=== PATIENT | female | born 1960 | race Caucasian/White ===

== ENCOUNTER 2016-04-28 11:22 | Emergency (ER) | payer OTHER ==
[~2016-04-28 11:22] MED LIST: AMIT10TA13; ASPI81 PO; ESTR.3 PO; LOVA10TA; RANI150UDC PO
[2016-04-28 11:35] VITALS: BP 178/118; PULSE 93; RESP 20; TEMP 98.2; O2SAT 94
[2016-04-28] MEDS ORDERED: DICL1CAP3 PO (11:40)
[2016-04-28] MEDS ORDERED: SODIUM CHLORIDE 0.9% FLUSH 10 ML FLUSH IVF PRN (11:45)
[2016-04-28] MEDS ORDERED: SODIUM CHLORID 0.9% 500 ML INJ 500 ML IV ONE (11:45)
[2016-04-28 11:51] VITALS: BP_SYST 135; BP_SYST 153; BP_DIAS 80; BP_DIAS 93; PULSE 69; RESP 20; O2SAT 95; O2SAT 98
[2016-04-28 11:54] LABS: AUTOMATED NEUTROPHIL # 6.2 TH/MM3 (1.8-7.7); BASOPHIL % 0.4 % (0.0-2.0); EOSINOPHIL # 0.1 TH/MM3 (0-0.4); EOSINOPHIL % 0.9 % (0.0-4.0); HEMATOCRIT 45.3 % (35.0-46.0); HEMO FLAGS DIFF FINAL; LYMPH % 28.6 % (9.0-44.0); LYMPHOCYTE # 2.8 TH/MM3 (1.0-4.8); MEAN CELL VOLUME 89.1 FL (80.0-100.0); MEAN CORPUSCULAR HEMOGLOBIN 30.1 PG (27.0-34.0); MEAN CORPUSCULAR HGB CONC 33.8 % (32.0-36.0); NEUT % 64.1 % (16.0-70.0); PLATELET COUNT 353 TH/MM3 (150-450); RED BLOOD COUNT 5.08 MIL/MM3 (4.00-5.30); RED CELL DISTRIBUTION WIDTH 13.4 % (11.6-17.2); WHITE BLOOD COUNT 9.7 TH/MM3 (4.0-11.0)
[2016-04-28 12:02] LABS: CHLORIDE 108 MEQ/L (98-107); POTASSIUM 3.8 MEQ/L (3.5-5.1); SODIUM (NA) 143 MEQ/L (136-145)
--- NOTE | 2016-04-28 12:04 | RADHPO ---
EXAM DATE/TIME: 04/28/2016 11:42 [facility] COMPARISON: No previous studies available for comparison. INDICATIONS : Chest pains with shortness of breath. MEDICAL HISTORY : None. SURGICAL HISTORY : Right side pneumothorax about 20 years ago. ENCOUNTER: Initial ACUITY: 1 day PAIN SCORE: 6/10 LOCATION: Bilateral chest and mid back region. FINDINGS: The heart is normal size. The lungs demonstrate some mild chronic interstitial changes in the bases b ut are otherwise clear. No pneumothorax is seen. The visualized bony structures are grossly intact. CONCLUSION: 1. Chronic appearing interstitial change at the lung bases. No acute abnormality. Teddy Mark MD on April 28, 2016 at 11:59 Board Certified Radiologist. This report was verified electronically.
[2016-04-28 12:06] LABS: ANION GAP 8 MEQ/L (5-15); BICARBONATE 26.6 MEQ/L (21.0-32.0); BLOOD UREA NITROGEN 14 MG/DL (7-18); MAGNESIUM 2.4 MG/DL (1.5-2.5)
[2016-04-28 12:09] LABS: ALT (GPT) 41 U/L (10-53); AST (GOT) 23 U/L (15-37); GLOMERULAR FILTRATION RATE 84 ML/MIN (>89)
[2016-04-28 12:10] LABS: TOTAL BILIRUBIN ADULT 0.5 MG/DL (0.2-1.0)
[2016-04-28 12:12] LABS: ALKALINE PHOSPHATASE 70 U/L (45-117)
[2016-04-28 12:13] LABS: APTT (PATIENT) 27.7 SEC (24.3-30.1); INTERNATIONAL NORMALIZED RATIO 0.9 RATIO; PROTHROMBIN TIME - PATIENT 10.1 SEC (9.8-11.6)
[2016-04-28 12:15] LABS: CREATINE KINASE 77 U/L (26-192)
--- NOTE | 2016-04-28 13:00 | PD ---
HPI Chief Complaint: Chest Pain Time Seen by Provider: 11:36 Travel History International Travel<30 days: No Contact w/Intl Traveler<30days: No Traveled to known affect area: No History of Present Illness HPI 56-year-old female notes pain in her upper back that goes around into her breasts on the right. She states the pain is stabbing. The pain is severe in nature. This is been intermittent since Tuesday night. She states it feels worse when she moves around or takes a deep breath. She denies other modifying factors. She states she also intermittently will get chest pain. She denies other concurrent complaints. She denies any trauma. She states she follows with Dr. Russell for intermittent elevated heart rate. She states she tried nitroglycerin at home that she has for that and it did not help. She states that she's had a cardiac catheterization a couple years ago that showed small vessels but she did not have any stents or interventions that she is aware of. She states she last saw them 6 months ago but does not recall her last stress test. PFSH Past Medical History Cardiovascular Problems: Yes (IRREGULAR HEART BEAT) High Cholesterol: Yes Diminished Hearing: No Medical other: Yes (COLLAPSED LUNG) ?: Not Past Surgical History Hysterectomy: Yes Family History Family Myocardial Infarction: Yes Social History Alcohol Use: No Tobacco Use: No (FORMER) Substance Use: No Allergies-Medications (Allergen,Severity, Reaction): Coded Allergies: Lidocaine (Verified Allergy, Severe, 04/28/16) Uncoded Allergies: N (Allergy, Unknown, 10/16/02) XYLOCAINE-SEVERE REACTION (Allergy, Unknown, 10/16/02) Reported Meds & Prescriptions Reported Meds & Active Scripts Active Reported Zorvolex (Diclofenac) 18 Mg Cap Unknown Dose PO TID Review of Systems Except as stated in HPI: all other systems reviewed are Neg Physical Exam Narrative GENERAL: Well-nourished, well-developed patient. Uncomfortable SKIN: Warm and diaphoretic HEAD: Normocephalic and atraumatic. EYES: No injection or drainage. ENT: No nasal drainage noted. NECK: Supple, trachea midline. CARDIOVASCULAR: Regular rate and rhythm RESPIRATORY: Breath sounds equal bilaterally. No accessory muscle use. GASTROINTESTINAL: Abdomen soft, non-tender, nondistended. EXTREMITIES: No edema. BACK: Nontender without obvious deformity in midline, tender across mid lateral thoracic area bilaterally at about the level where her bra is without associated skin changes. NEUROLOGICAL: Awake and alert. Motor and sensory grossly within normal limits. Normal speech. Data Data Last Documented VS Vital Signs Date Time Temp Pulse Resp B/P Pulse Ox O2 Delivery O2 Flow Rate FiO2 04/28/16 15:59 68 20 135/90 98 04/28/16 11:35 98.2 Orders Electrocardiogram (04/28/16 11:35) B-Type Natriuretic Peptide (04/28/16 11:35) Ckmb (Isoenzyme) Profile (04/28/16 11:35) Complete Blood Count With Diff (04/28/16 11:35) Comprehensive Metabolic Panel (04/28/16 11:35) D-Dimer (04/28/16 11:35) Magnesium (Mg) (04/28/16 11:35) Prothrombin Time / Inr (Pt) (04/28/16 11:35) Act Partial Throm Time (Ptt) (04/28/16 11:35) Troponin I (04/28/16 11:35) Lipase (04/28/16 11:35) Chest, Single Ap (04/28/16 11:35) Ecg Monitoring (04/28/16 11:35) Bilateral Bp Monitoring (04/28/16 11:35) Iv Access Insert/Monitor (04/28/16 11:35) Oximetry (04/28/16 11:35) Sodium Chloride 0.9% Flush (Ns Flush) (04/28/16 11:45) Sodium Chlorid 0.9% 500 Ml Inj (Ns 500 M (04/28/16 11:45) Cta Thor Abd Aorta W Iv C W3d (04/28/16 12:21) Iohexol 350 Inj (Omnipaque 350 Inj) (04/28/16 13:07) Aspirin (Aspirin) (04/28/16 14:00) Troponin I (04/28/16 15:40) Labs Laboratory Tests Test 04/28/16 04/28/16 11:40 15:40 White Blood Count 9.7 TH/MM3 Red Blood Count 5.08 MIL/MM3 Hemoglobin 15.3 GM/DL Hematocrit 45.3 % Mean Corpuscular Volume 89.1 FL Mean Corpuscular Hemoglobin 30.1 PG Mean Corpuscular Hemoglobin 33.8 % Concent Red Cell Distribution Width 13.4 % Platelet Count 353 TH/MM3 Mean Platelet Volume 9.0 FL Neutrophils (%) (Auto) 64.1 % Lymphocytes (%) (Auto) 28.6 % Monocytes (%) (Auto) 6.0 % Eosinophils (%) (Auto) 0.9 % Basophils (%) (Auto) 0.4 % Neutrophils # (Auto) 6.2 TH/MM3 Lymphocytes # (Auto) 2.8 TH/MM3 Monocytes # (Auto) 0.6 TH/MM3 Eosinophils # (Auto) 0.1 TH/MM3 Basophils # (Auto) 0.0 TH/MM3 CBC Comment DIFF FINAL Differential Comment Prothrombin Time 10.1 SEC Prothromb Time International 0.9 RATIO Ratio Activated Partial 27.7 SEC Thromboplast Time D-Dimer Quantitative (PE/DVT) 4.39 MG/L FEU Sodium Level 143 MEQ/L Potassium Level 3.8 MEQ/L Chloride Level 108 MEQ/L Carbon Dioxide Level 26.6 MEQ/L Anion Gap 8 MEQ/L Blood Urea Nitrogen 14 MG/DL Creatinine 0.72 MG/DL Estimat Glomerular Filtration 84 ML/MIN Rate Random Glucose 98 MG/DL Calcium Level 8.8 MG/DL Magnesium Level 2.4 MG/DL Total Bilirubin 0.5 MG/DL Aspartate Amino Transf 23 U/L (AST/SGOT) Alanine Aminotransferase 41 U/L (ALT/SGPT) Alkaline Phosphatase 70 U/L Total Creatine Kinase 77 U/L Troponin I LESS THAN 0.02 LESS THAN 0.02 NG/ML NG/ML B-Type Natriuretic Peptide 40 PG/ML Total Protein 7.7 GM/DL Albumin 3.6 GM/DL Lipase 85 U/L [facility] Medical Decision Making Medical Screen Exam Complete: Yes Emergency Medical Condition: Yes Medical Record Reviewed: Yes (past history confirmed) Interpretation(s) EKG is sinus rhythm at 70, no STEMI criteria, mild inferior ST depression ct chest no PE or dissection when discussed with radiologist CBC & BMP Diagram 04/28/16 11:40 Last 24 hours Impressions Aorta CTA 04/28/16 1221 Signed Impressions: Service Date/Time: Thursday, April 28, 2016 12:55 - CONCLUSION: 1. Patient does not have any vascular etiology for clinical symptoms. Thoracic and abdominal aorta are normal in caliber throughout their length without dissection or aneurysmal disease. 2. Arch and mesenteric vessels are patent. 3. Biapical emphysematous changes. Lungs are otherwise clear. . Conner Bernal MD Chest X-Ray 04/28/16 1135 Signed Impressions: Service Date/Time: Thursday, April 28, 2016 11:42 - CONCLUSION: 1. Chronic appearing interstitial change at the lung bases. No acute abnormality. 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 Patient happy with care, all questions answered. Patient knows that follow up is incumbent on them and to return to the emergency room immediately if new or worsening symptoms develop. Patient given strict return precautions, vitals reviewed and are normal, agrees to further workup as an outpatient. Physician Communication Physician Communication dr russell states to check 4 hour troponin and if it is negative she can go home and follow in the office Diagnosis Primary Impression: Back pain Qualified Code: M54.6 - Acute bilateral thoracic back pain Patient Instructions: General Instructions Additional Instructions: return as needed, tylenol as needed, follow with dr russell this week Med/Other Pt SpecificInfo: No Change to Meds Disposition: 01 DISCHARGE HOME Condition: Stable Katlin Man MD Apr 28, 2016 13:00
[2016-04-28] MEDS ORDERED: IOHEXOL 350 MG/ML 10 ML VIAL (for RAD DIAG) IV ONE (13:07)
[2016-04-28 13:28] VITALS: BP 153/94; PULSE 78; RESP 20; O2SAT 95
--- NOTE | 2016-04-28 13:53 | RADHPO ---
EXAM DATE/TIME: 04/28/2016 12:55 [facility] COMPARISON: No previous studies available for comparison. INDICATIONS : Right posterior chest pain radiating anteriorly. Evaluate for dissection. IV CONTRAST: 95 cc Omnipaque 350 (iohexol) IV RADIATION DOSE: 11.69 CTDIvol (mGy) MEDICAL HISTORY : Hypercholesterolemia. SURGICAL HISTORY : Hysterectomy. ENCOUNTER: Initial ACUITY: 4 - 6 days PAIN SCALE: 6/10 LOCATION: Right chest TECHNIQUE: Volumetric scanning was performed using a multi-row detector CT scanner. The data was post processed with a variety of visualization algorithms including full volume maximum intensity projection, multi -planar sliding thin slab reformation, curved planar reformation, and surface rendering techniques. Using automated exposure control and adjustment of the mA and/or kV according to patient size, radiat ion dose was kept as low as reasonably achievable to obtain optimal diagnostic quality images. FINDINGS: LUNGS: Biapical emphysematous changes. Lungs are otherwise clear. No pleural fluid is present. MEDIASTINUM: No abnormally enlarged lymph nodes by CT criteria. No axillary or hilar abnormalities are identified. ABDOMEN: The liver and spleen are free of focal defects. The gallbladder and pancreas demonstrate no abnormali ty. The adrenal glands are normal. The kidneys demonstrate no evidence of solid renal mass or hydrone phrosis. No free fluid or abdominal masses are identified. No para-aortic adenopathy is seen. The josé antonio endix is identified and is radiographically normal. PELVIS: No evidence of free fluid or pelvic mass. No abnormally enlarged inguinal or retroperitoneal lymph no aldo are present. The bladder is unremarkable. Patient appears to be status post hysterectomy. THORACIC AORTA: The thoracic aortic root is normal with normal branching of the great vessels. There is no evidence of aneurysm or dissection. ABDOMINAL AORTA: The aorta is normal in caliber without aneurysm or dissection. The renal arteries are patent bilater ally. The proximal celiac and superior mesenteric arteries are patent and normal in diameter. PELVIC VESSELS: The internal iliac and external iliac vessels are patent without aneurysm or stenosis. CONCLUSION: 1. Patient does not have any vascular etiology for clinical symptoms. Thoracic and abdominal aorta ar e normal in caliber throughout their length without dissection or aneurysmal disease. 2. Arch and mesenteric vessels are patent. 3. Biapical emphysematous changes. Lungs are otherwise clear. . Conner Bernal MD on April 28, 2016 at 13:45 Board Certified Radiologist. This report was verified electronically.
[2016-04-28] MEDS ORDERED: ASPIRIN 325 MG TAB PO ONE (14:00)
[2016-04-28 15:04] VITALS: BP 124/79; PULSE 79; RESP 20; O2SAT 98
[2016-04-28 15:59] VITALS: BP 135/90; PULSE 68; RESP 20; O2SAT 98
--- NOTE | 2016-04-29 14:49 | EKG ---
Date Performed: 04/28/2016 Time Performed: 11:34:08 PTAGE: 56 years EKG: Sinus rhythm Possible left atrial abnormality ST junctional depression is nonspecific Borderline ECG Compared to prior tracing no significant change PREVIOUS TRACING : 04/17/2002 11.34 DOCTOR: Perfecto Bernstein Interpretating Date/Time 04/29/2016 14:42:34
== END 2016-04-28 16:35 | disposition home or self-care (01) ==
LOC: PHED 11:22
DX: M54.6 Pain in thoracic spine (principal); R07.9 Chest pain, unspecified; E78.00 Pure hypercholesterolemia, unspecified; R94.31 Abnormal electrocardiogram [ECG] [EKG]; I49.9 Cardiac arrhythmia, unspecified; Z87.891 Personal history of nicotine dependence; R61 Generalized hyperhidrosis
CPT/HCPCS: 71010; 71275; 74174; 80053; 82550; 83690; 83735; 83880; 84484; 85025; 85379; 85610; 85730; 93005; 96360; 96361; 99284; J7040; Q9967

== ENCOUNTER 2016-10-14 12:30 | Emergency (ER) | payer OTHER ==
[~2016-10-14] VITALS: Ht 160 cm; Wt 63.0 kg
[~2016-10-14 12:30] MED LIST changes: -AMIT10TA13; -ASPI81 PO; +DICL1CAP3 PO; -ESTR.3 PO; -LOVA10TA; -RANI150UDC PO
[2016-10-14 12:39] VITALS: BP 137/65; PULSE 79; RESP 18; TEMP 98.1
[2016-10-14] MEDS ORDERED: ATOR20TA15 PO (12:53)
[2016-10-14] MEDS ORDERED: FAMC500T PO (13:05)
[2016-10-14] MEDS ORDERED: PERC5TAB12 PO (13:05)
--- NOTE | 2016-10-14 13:05 | PD ---
HPI . Painful rash Chief Complaint: Skin Problem Time Seen by Provider: 12:54 Travel History International Travel<30 days: No Contact w/Intl Traveler<30days: No Traveled to known affect area: No History of Present Illness HPI This patient presents with a four-day history of a painful rash on her left breast. It is now involving her left axillary area. She is also is having some pain in her left upper back. Pain is exacerbated by her bra. No relieving factor. Pain was rated 10/10. PFSH Past Medical History Blood Disorders: No Cardiovascular Problems: Yes (IRREGULAR HEART BEAT) High Cholesterol: Yes Diminished Hearing: No ?: Not Past Surgical History Hysterectomy: Yes Social History Alcohol Use: No Tobacco Use: No (FORMER) Substance Use: No Allergies-Medications (Allergen,Severity, Reaction): Coded Allergies: lidocaine (Unverified Allergy, Severe, 10/14/16) Uncoded Allergies: N (Allergy, Unknown, 10/16/02) XYLOCAINE-SEVERE REACTION (Allergy, Unknown, 10/16/02) Reported Meds & Prescriptions Reported Meds & Active Scripts Active Reported Atorvastatin (Atorvastatin Calcium) 20 Mg Tab 20 Mg PO HS Review of Systems Except as stated in HPI: all other systems reviewed are Neg Skin: Positive Rash Physical Exam Narrative GENERAL: Awake and alert and fully oriented. SKIN: She has a cluster of blisters on the left upper breast area she has a couple of scattered blisters in her left axilla. She does not have any blisters on her upper back. HEAD: Normocephalic/atraumatic. EYES: Pupils equal. Extraocular movements intact. NECK: Full range of motion. CARDIOVASCULAR: Regular rate and rhythm. RESPIRATORY: Nonlabored respirations. MUSCULOSKELETAL: Atraumatic. NEUROLOGICAL: Nonfocal. PSYCHIATRIC: Appropriate mood and affect. Data Data Last Documented VS Vital Signs Date Time Temp Pulse Resp B/P (MAP) Pulse Ox O2 Delivery O2 Flow Rate FiO2 10/14/16 12:39 98.1 79 18 137/65 (89) MDM Medical Decision Making Medical Screen Exam Complete: Yes Emergency Medical Condition: Yes Differential Diagnosis The differential diagnosis of the skin rash includes but is not limited to allergic urticaria, scabies, insect bites, contact dermatitis Narrative Course This patient presents with a painful rash. The rash is located in the T1 dermatome on the left. It has the typical appearance of shingles. Diagnosis Primary Impression: Shingles Qualified Codes: B02.9 - Zoster without complications Patient Instructions: General Instructions, Shingles (DC) Med/Other Pt SpecificInfo: Prescription(s) given Scripts Oxycodone-Acetaminophen (Percocet) 5-325 mg Tab 1 TAB PO Q4H Y for PAIN, #12 TAB 0 Refills Prov: Georgia David MD 10/14/16 Famciclovir (Famciclovir) 500 Mg Tab 500 MG PO TID for Mgmt Viral Infection for 10 Days, TAB 0 Refills Prov: Georgia David MD 10/14/16 Disposition: 01 DISCHARGE HOME Condition: Stable Georgia David MD Oct 14, 2016 13:05
== END 2016-10-14 13:32 | disposition home or self-care (01) ==
LOC: PHEFT 12:30
DX: B02.9 Zoster without complications (principal); I49.9 Cardiac arrhythmia, unspecified; E78.00 Pure hypercholesterolemia, unspecified; Z87.891 Personal history of nicotine dependence
CPT/HCPCS: 99284